=== PATIENT | male | born 1990 | race American Indian/Alaskan Native ===

== ENCOUNTER 2020-03-04 17:25 | Emergency (ER) | payer SELFPAY ==
[2020-03-04 18:15] VITALS: BP 140/71
[2020-03-04 19:42] LABS: Amphetamine Screen,Urine PRESUMPTIVE NEGATIVE; Benzodiazepines Screen,Urine PRESUMPTIVE NEGATIVE; Cocaine Screen,Urine PRESUMPTIVE NEGATIVE; Methadone Screen,Urine PRESUMPTIVE NEGATIVE; Opiate Screen,Urine PRESUMPTIVE NEGATIVE
[2020-03-04 19:46] LABS: Bilirubin,Urine NEG (Negative); Blood,Urine NEG (Negative); Color,Urine Yellow (Yellow); Mucus,Urine FEW /HPF; Protein,Urine <15 mg/dL mg/dL (Negative); Urobilinogen,Urine < 2.0 mg/dL (<2.0); WBC,Urine < 1.0 /HPF (0.0-6.0)
[2020-03-04 19:56] LABS: Cannabinoid Screen,Urine PRESUMPTIVE POSITIVE
== END 2020-03-04 20:48 | disposition left against medical advice (07) ==
LOC: ED 17:25
DX: R45.851 Suicidal ideations (principal); Z53.21 Procedure and treatment not carried out due to patient leaving prior to being seen by health care provider
CPT/HCPCS: 80307; 81001

== ENCOUNTER 2020-03-04 21:33 | Emergency (ER) | payer SELFPAY ==
--- NOTE | 2020-03-04 21:50 | Emergency Department Report ---
HPI <JAKI BERMUDEZ - Last Filed: 03/05/20 12:41> - HPI HPI: 30-year-old -[place] male presents to the emergency department with a complaint of having some "bad thoughts" since doing ecstasy earlier this evening. Patient says that he has some thoughts of harming himself but in actuality he does not want to . He denies any visual or auditory hallucinations, or any homicidal ideations. He denies any past psychiatric or medical history. Patient also will occasionally smoke marijuana and drink alcohol but he denies any history of alcoholism or alcohol dependence. Patient also says that he is interested in detox/rehabilitation as he is consistently using ecstasy. <SLOAN SILVA - Last Filed: 03/05/20 22:12> - General Chief Complaint: Psych Time Seen by Provider: 03/04/20 21:48 ED Past Medical Hx - Past Medical History Previous Medical History?: No - Surgical History Past Surgical History?: Yes Additional Surgical History: right leg. right eyelid - Social History Smoking Status: Current Every Day Smoker Substance Use Type: Alcohol, Marijuana, Other <SLOAN SILVA - Last Filed: 03/05/20 22:12> ED Review of Systems ROS: Stated complaint: SUICIDAL, DRUG INGESTION Other details as noted in HPI <JAKI BERMUDEZ - Last Filed: 03/05/20 12:41> ROS: Stated complaint: SUICIDAL, DRUG INGESTION Other details as noted in HPI Comment: All other systems reviewed and negative Constitutional: denies: chills, fever ENT: denies: ear pain, throat pain Respiratory: denies: cough, shortness of breath Cardiovascular: denies: chest pain, palpitations Gastrointestinal: denies: abdominal pain, vomiting Musculoskeletal: denies: back pain, arthralgia Neurological: denies: headache, weakness Psychiatric: suicidal thoughts. denies: auditory hallucinations, visual hallucinations, homicidal thoughts <SLOAN SILVA - Last Filed: 03/05/20 22:12> Physical Exam - Physical Exam Vital Signs: Vital Signs 03/04/20 03/04/20 03/05/20 21:37 21:40 02:37 Temperature 98.6 F 98.0 F Pulse Rate 103 H 84 Respiratory 18 18 16 Rate Blood Pressure 139/87 Blood Pressure 130/80 [Right] O2 Sat by Pulse 98 18 L 99 Oximetry 03/05/20 03/05/20 07:45 07:48 Temperature 98.0 F 97.8 F Pulse Rate 78 78 Respiratory 18 18 Rate Blood Pressure Blood Pressure 124/97 124/97 [Right] O2 Sat by Pulse 99 96 Oximetry <JAKI BERMUDEZ - Last Filed: 03/05/20 12:41> - Physical Exam Vital Signs: Vital Signs 03/04/20 21:37 Temperature 98.6 F Pulse Rate 103 H Respiratory 18 Rate Blood Pressure 139/87 O2 Sat by Pulse 98 Oximetry Physical Exam: GENERAL: The patient is well-developed well-nourished. HENT: Normocephalic. Atraumatic. Patient has moist mucous membranes. EYES: Extraocular motions are intact. NECK: Supple. Trachea is midline. CHEST/LUNGS: Clear to auscultation. There is no respiratory distress noted. HEART/CARDIOVASCULAR: Regular. There is no tachycardia. There is no murmur. ABDOMEN: Abdomen is soft, nontender. Patient has normal bowel sounds. SKIN: Skin is warm and dry. NEURO: The patient is awake, alert, and oriented. The patient is cooperative. The patient has no focal neurologic deficits. Normal speech. MUSCULOSKELETAL: There is no tenderness or deformity. There is no evidence of acute injury. <SLOAN SILVA S - Last Filed: 03/05/20 22:12> ED Course Vital Signs 03/04/20 03/04/20 03/05/20 21:37 21:40 02:37 Temperature 98.6 F 98.0 F Pulse Rate 103 H 84 Respiratory 18 18 16 Rate Blood Pressure 139/87 Blood Pressure 130/80 [Right] O2 Sat by Pulse 98 18 L 99 Oximetry 03/05/20 03/05/20 07:45 07:48 Temperature 98.0 F 97.8 F Pulse Rate 78 78 Respiratory 18 18 Rate Blood Pressure Blood Pressure 124/97 124/97 [Right] O2 Sat by Pulse 99 96 Oximetry <JAKI BERMUDEZ - Last Filed: 03/05/20 12:41> Vital Signs 03/04/20 21:37 Temperature 98.6 F Pulse Rate 103 H Respiratory 18 Rate Blood Pressure 139/87 O2 Sat by Pulse 98 Oximetry <SLOAN SILVA S - Last Filed: 03/05/20 22:12> ED Medical Decision Making - Lab Data Result diagrams: 03/04/20 21:46 03/04/20 21:46 - Medical Decision Making Patient evaluated by our mental health and psychiatric team. Psychiatric team advised to discharge patient home and to follow-up as an outpatient. Patient given outpatient resources for substance abuse programs. Patient is currently denying any suicidal or homicidal ideation. No visual or auditory hallucination. Patient is medically and psychiatrically stable for discharge. <JAKI BERMUDEZ - Last Filed: 03/05/20 12:41> - Lab Data Result diagrams: 03/04/20 21:46 03/04/20 21:46 - Medical Decision Making This patient initially presented with a complaint of some suicidal ideation secondary to taking ecstasy. For this reason the patient was made a 1013. Labs are mostly unremarkable. We never received a urine sample to test for UTI and urine drug screen. He was seen by the psychiatric team who recommended resending of the 1013 and discharged home. <SLOAN SILVA - Last Filed: 03/05/20 22:12> Critical care attestation.: If time is entered above; I have spent that time in minutes in the direct care of this critically ill patient, excluding procedure time. <JAKI BERMUDEZ. - Last Filed: 03/05/20 12:41> Critical Care Time: No Critical care attestation.: If time is entered above; I have spent that time in minutes in the direct care of this critically ill patient, excluding procedure time. <SLOAN SILVA - Last Filed: 03/05/20 22:12> ED Disposition Is pt being admited?: No <JAKI BERMUDEZ - Last Filed: 03/05/20 12:41> Is pt being admited?: No <SLOAN SILVA S - Last Filed: 03/05/20 22:12> Clinical Impression: Suicidal ideation Disposition: -01 TO HOME OR SELFCARE Condition: Stable Instructions: Suicide Prevention for Adults (ED) Referrals: PRIMARY CARE,MD [Primary Care Provider] - 3-5 Days
[2020-03-04 21:59] LABS: Basophils # (Auto) 0.1 K/mm3 (0.0-0.1); Basophils % (Auto) 1.2 % (0.0-1.8); Eosinophils # (Auto) 0.2 K/mm3 (0.0-0.4); Eosinophils % (Auto) 2.4 % (0.0-4.3); Hematocrit 39.8 % (35.5-45.6); Hemoglobin 13.1 gm/dl (11.8-15.2); Lymphocytes # (Auto) 1.7 K/mm3 (1.2-5.4); Mean Corpuscular HGB Conc 33 % (32-34); Mean Corpuscular Volume 81 fl (84-94); Monocytes # (Auto) 0.6 K/mm3 (0.0-0.8); Monocytes % (Auto) 8.8 % (0.0-7.3); Platelet Count 325 K/mm3 (140-440); Red Cell Distribution Width 15.5 % (13.2-15.2)
[2020-03-04 22:20] LABS: BUN/Creatinine Ratio 14; Blood Urea Nitrogen 10 mg/dL (9-20); Calcium 9.4 mg/dL (8.4-10.2); Hemolysis Index 8
[2020-03-04] MEDS ORDERED: NICOTINE 21 MG/24 HR PATCH TD ONE (22:47)
[2020-03-05 07:49] VITALS: BP 124/97
== END 2020-03-05 14:24 | disposition home or self-care (01) ==
LOC: ED 21:33
DX: R45.851 Suicidal ideations (principal); F17.200 Nicotine dependence, unspecified, uncomplicated; F12.90 Cannabis use, unspecified, uncomplicated; Z91.013 Allergy to seafood; Z98.890 Other specified postprocedural states
CPT/HCPCS: 36415; 80048; 80320; 85025; G0480